=== PATIENT | male | born 1940 | race Caucasian/White ===

== ENCOUNTER 2020-01-03 08:24 | Inpatient (IN) ==
--- NOTE | 2019-12-31 09:11 | PAT Medication Instructions ---
Medication Instructions Date of Service December 31, 2019 Home Medications aspirin [Aspir-81] 81 mg PO QAM atorvastatin 40 mg PO QAM Take morning of surgery With a small sip of water, OTHERWISE NOTHING TO EAT OR DRINK AFTER MIDNIGHT: aspirin [Aspir-81] 81 mg PO QAM atorvastatin 40 mg PO QAM Other Notes If you have any questions please call us at [phone] or [phone] or [phone] or [phone]
--- NOTE | 2019-12-31 11:21 | Anesthesiology Consultation ---
Date of Service December 31, 2019 Assessment & Plan (1) Encounter for pre-operative examination: Chart Review Chart Review: Acceptable Risk for Surgery and Patient seen in Pre Admission Testing --Pre op EKG showing possible inferior infarct. When cardio compares to 2004 EKG- only notes that PVCs no longer present. By personal visual inspection, very minor changes noted. Discussed with Dr. Riggs, patient has excellent functional status with no limiting CP or SOB. Pt acceptable risk for surgery at this time but will leave to anesthesiologist discretion DOS. Per nursing assessment 12/28/19, patient resides in [facility]- only traveled to [facility] for medical appointments (wore mask). Pt denies any known contact with PUI/Covid positive patients. No current Covid related symptoms or history of Covid testing Teaching & Discussion Pre-Anesthesia Teaching/Discussion Notes: Instructed NPO after midnight before surgery,except medications with 15 cc of water. Medication instructions provided according to the PAT guidelines. History Surgery Operation Date: 01/03/20 13:40 Proposed Procedures p Left Reverse Total Shoulder Arthroplasty - Jose Guardado MD Height/Weight Height: 5 ft 7 in Weight: 89.8 kg Allergies Allergy/AdvReac Type Severity Reaction Status Date / Time No Known Allergies Allergy Unknown Unverified 12/28/19 15:31 Medications Home Medications Medication Instructions Recorded Confirmed Last Taken aspirin [Aspir-81] 81 mg PO QAM 12/28/19 12/28/19 Unknown atorvastatin 20 mg PO DAILY 12/31/19 12/31/19 Unknown Past Medical History Medical History Hyperlipidemia KAYLA (obstructive sleep apnea) Uses BiPAP occ Exercise / Class Metabolic Activity 1 > 8 Run/Swim/Ski/Tennis (runs 2-3 miles daily; one flight of stairs- no chest pain or SOB ) Past Surgical History Surgical History History of colonoscopy History of total hip arthroplasty LEFT Hx of shoulder surgery RIGHT Past Anesthesia History No Hx of Anesthesia Complications and No Family Hx of Anesthesia Complications History of PONV No Hx of PONV and No Hx of Motion Sickness Social History Smoking Status: Never smoker Do You Dip or Chew Tobacco: No Hx Alcohol Use: No Hx Substance Use: No substance use type: does not use Review of Systems Patient denies chest pain, shortness of breath, dyspnea on exertion, reflux, cough, wheezing, palpitations. No hx of seizures, stroke, NM. No hx of blood clots or blood transfusions Physical Exam Vital Signs VITALS BP 148/92 P 49 (HR usually slow for patient- runs 2-3 miles daily- denies syncope or dizziness) TEMP 98.3 SP02 96% RESP 16 Constitutional no acute distress ENMT Mouth: no TMJ clicking, no chipped teeth and no loose teeth Thyromental Distance: > or= 3.5 Finger Breadths (4.0) Mallampati Class: II Missing molars Neck + limited neck extension (mild) Respiratory normal respiratory effort; no respiratory distress Auscultation: lungs clear to auscultation bilaterally; no wheezes Cardiovascular Rate/Rhythm: regular rate and regular rhythm Heart Sounds: no murmur Vessels: no carotid bruit Musculoskeletal Spine: no pain with cervical ROM Neurologic moves all extremities Psychiatric Orientation: alert Testing Laboratory Results 12/31/19 11:39 12/31/19 11:39 PT 11.0 Seconds (9.0-12.0) 12/31/19 11:39 INR 1.0 (0.9-1.1) 12/31/19 11:39 APTT 28.1 Seconds (21.0-31.0) 12/31/19 11:39 Hemoglobin A1c 6.0 % (4.5-5.6) H 12/31/19 11:39 Urine Color Yellow 12/31/19 11:39 Urine Appearance Clear (Clear) 12/31/19 11:39 Urine pH 5.5 (4.5-7.5) 12/31/19 11:39 Ur Specific [place] 1.021 (1.000-1.030) 12/31/19 11:39 Urine Protein Negative (Negative) 12/31/19 11:39 Urine Glucose (UA) Negative (Negative) 12/31/19 11:39 Urine Ketones Negative (Negative) 12/31/19 11:39 Urine Nitrite Negative (Negative) 12/31/19 11:39 Ur Leukocyte Esterase Negative (Negative) 12/31/19 11:39 Blood Type A Positive 12/31/19 11:39 Antibody Screen NEGATIVE 12/31/19 11:39 Electrocardiogram Date: 12/31/19 Findings: + SB @ (46) Possible inferior infarct, age undetermined. Per cardio when compared to EKG from 11/17/2004, PVCs are no longer present. Chest X-Ray Date: 12/31/19 Findings: + NAD Platelike atelectasis left base.
[2019-12-31 12:29] LABS: Hematocrit (blood only) 47.1 % (42-52); Hemoglobin 15.6 g/dL (14.0-18.0); Mean Corpuscular Hemoglobin 31.6 pg (25-34); Mean Corpuscular Hgb Conc 33.1 g/dL (32-36); Mean Corpuscular Volume 95.5 fL (80-100); RDW Standard Deviation 48.6 fL (36.4-46.3); Red Blood Count 4.93 M/uL (4.7-6.1)
--- NOTE | 2019-12-31 12:34 | XRay Report ---
XR chest Pre-admission PA/Lat CLINICAL HISTORY: pat preoperative COMPARISON STUDY: No previous studies for comparison. FINDINGS: The bones soft tissues and hemidiaphragms are normal. The cardiomediastinal silhouette is n ormal. The lungs are clear. The pulmonary vasculature is normal. Platelike atelectasis left base IMPRESSION: No acute process. Platelike atelectasis left base. ACT 112: Negative or not required by law. The above report was generated using voice recognition software. It may contain grammatical, syntax or spelling errors. Electronically signed by: Camacho Novoa M.D. 12/31/2019 12:33 PM
[2019-12-31 12:35] LABS: Potassium 3.9 mmol/L (3.5-5.1)
[2019-12-31 12:36] LABS: Albumin Level 3.4 gm/dl (3.4-5.0); BUN Creatinine Ratio 13.6 (10-20); Calcium 8.9 mg/dl (8.5-10.1); Creatinine Clr Calc Pharmacy 37.5 ml/min; Est GFR (African American) 43.8; Est GFR (Non-African American) 37.8
[2019-12-31 12:40] LABS: Estimated Average Glucose 126 mg/dl
[2019-12-31 12:43] LABS: Partial Thromboplastin Time 28.1 Seconds (21.0-31.0)
[2019-12-31 12:46] LABS: Appearance Urine Clear (Clear); Bilirubin Urine Negative (Negative); Blood Urine Negative (Negative); Color Urine Yellow; Glucose Urine UA Negative (Negative); Ketones Urine Negative (Negative); Leukocyte Esterase Urine Negative (Negative); Nitrite Urine Negative (Negative); Protein Urine Negative (Negative); Specific Gravity Urine 1.021 (1.000-1.030); Urobilinogen Urine Negative (Negative); pH Urine 5.5 (4.5-7.5)
[2019-12-31 13:27] LABS: Mean Platelet Volume 12.2 fL (7.4-10.4); Platelet Count 129 K/uL (130-400)
[2019-12-31 13:28] LABS: Basophils # (auto) 0.05 K/uL (0-0.2); Basophils % (auto) 0.8 %; Eosinophils # (auto) 0.37 K/uL (0-0.5); Immature Granulocytes # (auto) 0.01 K/uL (0.00-0.02); Immature Granulocytes % (auto) 0.2 %; Lymphocytes # (auto) 1.61 K/uL (1.2-3.4); Lymphocytes % (auto) 26.1 %; Monocytes # (auto) 0.68 K/uL (0.11-0.59); Neutrophils # (auto) 3.45 K/uL (1.4-6.5); Neutrophils % (auto) 55.9 %; Platelet Estimate Decreased (Normal)
--- NOTE | 2019-12-31 16:20 | History & Physical Report ---
Date of Service December 31, 2019 Assessment & Plan (1) Rotator cuff arthropathy of left shoulder: Treatment options were discussed with than patient. He has failed conservative measures as above. MRI demonstrates a massive retracted rotator cuff tear. He would like to proceed with surgical intervention. Risks, benefits and alternatives to surgery including but not limited to infection, DVT, pain, stiffness, need for revision surgery, damage to blood vessels, damage to nerves, PE, , were discussed with the patient and they wish to proceed. Given the size of patients tear, and quality of tissue this is something that would not be amenable to repair. We will proceed with left reverse total shoulder arthroplasty. Will plan on OPPT post discharge. We will plan on him resuming his daily aspirin post operatively for DVT prophylaxis. All questions answered. He will follow up post operatively. Surgery scheduled for 01/03/20 at [facility]. COVID-19 status is unknown. History of Present Illness Chief Complaint: Left shoulder pain Primary Care Provider: Cait Mclain DO Patient is an 79 year old male with PMHx of high cholesterol, question of a possible TIA several years ago who presents with ongoing left shoulder pain and dysfunction. He suffered a fall while skiing and has had problems since. He has failed conservative therapy, including cortisone injection, anti-iflammatories, and physical therapy. He continues to have pain and weakness, and difficulty carrying out his daily activities. He would like to proceed with surgical intervention. Patient denies headaches, sweats, fevers, chills, double vision, blurred vision, cough, sore throat, dysphagia, chest pain, sob, wheezing, n/v/d/c, numbness, tingling, fatigue, urinary symptoms, mood disorders. ROS positive for left shoulder pain and stiffness. Allergies Allergy/AdvReac Type Severity Reaction Status Date / Time No Known Allergies Allergy Unknown Unverified 12/28/19 15:31 Home Medications Home Medications Medication Instructions Recorded Confirmed Type aspirin [Aspir-81] 81 mg PO QAM 12/28/19 12/28/19 History atorvastatin 20 mg PO DAILY 12/31/19 12/31/19 History Past Med/Surg History Medical History Hyperlipidemia KAYLA (obstructive sleep apnea) Uses BiPAP occ Surgical History History of colonoscopy History of total hip arthroplasty LEFT Hx of shoulder surgery RIGHT Social History Preferred Language: Indonesian Communication Ability: Effective 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 Beliefs That Will Affect Care: None Current Living Situation: Spouse Feels Safe at Home: Yes Smoking Status: Never smoker Second Hand Exposure: No ; Hx Alcohol Use: No Hx Substance Use: No Review of Systems All systems reviewed & are unremarkable except as noted in HPI & below Physical Exam Constitutional: well developed and well nourished; no acute distress Eyes: PERRL, conjunctivae normal, anicteric sclerae ENMT: external ear and nose normal, oropharynx normal Neck: trachea midline, no thyromegaly Respiratory: normal respiratory effort, lungs clear to auscultation Cardiovascular: RRR, no murmur, no edema Musculoskeletal: Left Shoulder: Normal left shoulder ROM, positive impingement signs. Supraspinatus 3/5, infraspinatus 3/5, subscapularis 5/5 Skin: no rashes, warm and dry Neurologic: patellar DTR's 2+ bilat, sensation intact Psychiatric: A+Ox3, euthymic affect Results & Data Laboratory Results Lab Results 12/31/19 12/31/19 12/31/19 Range/Units 11:39 11:39 11:39 WBC 6.20 (4.8-10.8) K/uL RBC 4.93 (4.7-6.1) M/uL Hgb 15.6 (14.0-18.0) g/dL Hct 47.1 (42-52) % MCV 95.5 (80-100) fL MCH 31.6 (25-34) pg MCHC 33.1 (32-36) g/dL RDW Std Deviation 48.6 H (36.4-46.3) fL RDW Coeff of Sheri 14.0 (11.5-14.5) % Plt Count 129 L (130-400) K/uL MPV 12.2 H (7.4-10.4) fL Immature Gran % (Auto) 0.2 % Neut % (Auto) 55.9 % Lymph % (Auto) 26.1 % [place] % (Auto) 11.0 % Eos % (Auto) 6.0 % Baso % (Auto) 0.8 % Immature Gran # (Auto) 0.01 (0.00-0.02) K/uL Neut # (Auto) 3.45 (1.4-6.5) K/uL Lymph # (Auto) 1.61 (1.2-3.4) K/uL [place] # (Auto) 0.68 H (0.11-0.59) K/uL Eos # (Auto) 0.37 (0-0.5) K/uL Baso # (Auto) 0.05 (0-0.2) K/uL Platelet Estimate Decreased L (Normal) PT 11.0 (9.0-12.0) Seconds INR 1.0 (0.9-1.1) APTT 28.1 (21.0-31.0) Seconds PTT Ratio 1.0 Sodium (136-145) mmol/L Potassium (3.5-5.1) mmol/L Chloride (98-107) mmol/L Carbon Dioxide (21-32) mmol/L Anion Gap (3-11) BUN (7-18) mg/dl Creatinine (0.6-1.4) mg/dl Est Cr Clr Drug Dosing ml/min Est GFR ( Amer) Est GFR (Non-Af Amer) BUN/Creatinine Ratio (10-20) Glucose (70-99) mg/dl Estimat Average Glucose mg/dl Hemoglobin A1c (4.5-5.6) % Calcium (8.5-10.1) mg/dl Albumin (3.4-5.0) gm/dl Urine Color Urine Appearance (Clear) Urine pH (4.5-7.5) Ur Specific [place] (1.000-1.030) Urine Protein (Negative) Urine Glucose (UA) (Negative) Urine Ketones (Negative) Urine Blood (Negative) Urine Nitrite (Negative) Urine Bilirubin (Negative) Urine Urobilinogen (Negative) Ur Leukocyte Esterase (Negative) Blood Type A Positive Antibody Screen NEGATIVE 12/31/19 12/31/19 12/31/19 Range/Units 11:39 11:39 11:39 WBC (4.8-10.8) K/uL RBC (4.7-6.1) M/uL Hgb (14.0-18.0) g/dL Hct (42-52) % MCV (80-100) fL MCH (25-34) pg MCHC (32-36) g/dL RDW Std Deviation (36.4-46.3) fL RDW Coeff of Sheri (11.5-14.5) % Plt Count (130-400) K/uL MPV (7.4-10.4) fL Immature Gran % (Auto) % Neut % (Auto) % Lymph % (Auto) % [place] % (Auto) % Eos % (Auto) % Baso % (Auto) % Immature Gran # (Auto) (0.00-0.02) K/uL Neut # (Auto) (1.4-6.5) K/uL Lymph # (Auto) (1.2-3.4) K/uL [place] # (Auto) (0.11-0.59) K/uL Eos # (Auto) (0-0.5) K/uL Baso # (Auto) (0-0.2) K/uL Platelet Estimate (Normal) PT (9.0-12.0) Seconds INR (0.9-1.1) APTT (21.0-31.0) Seconds PTT Ratio Sodium 143 (136-145) mmol/L Potassium 3.9 (3.5-5.1) mmol/L Chloride 112 H (98-107) mmol/L Carbon Dioxide 27 (21-32) mmol/L Anion Gap 4.0 (3-11) BUN 23 H (7-18) mg/dl Creatinine 1.68 H (0.6-1.4) mg/dl Est Cr Clr Drug Dosing 37.5 ml/min Est GFR ( Amer) 43.8 Est GFR (Non-Af Amer) 37.8 BUN/Creatinine Ratio 13.6 (10-20) Glucose 100 H (70-99) mg/dl Estimat Average Glucose 126 mg/dl Hemoglobin A1c 6.0 H (4.5-5.6) % Calcium 8.9 (8.5-10.1) mg/dl Albumin 3.4 (3.4-5.0) gm/dl Urine Color Yellow Urine Appearance Clear (Clear) Urine pH 5.5 (4.5-7.5) Ur Specific [place] 1.021 (1.000-1.030) Urine Protein Negative (Negative) Urine Glucose (UA) Negative (Negative) Urine Ketones Negative (Negative) Urine Blood Negative (Negative) Urine Nitrite Negative (Negative) Urine Bilirubin Negative (Negative) Urine Urobilinogen Negative (Negative) Ur Leukocyte Esterase Negative (Negative) Blood Type Antibody Screen Diagnostic Findings Left shoulder radiographs: Mild degenerative changes throughout shoulder Left shoulder MRI: Demonstrates massive retracted tear of his rotator cuff.
--- NOTE | 2020-01-01 11:33 | Electrocardiogram Report ---
Test Reason : Blood Pressure : / mmHG Vent. Rate : 046 BPM Atrial Rate : 046 BPM P-R Int : 190 ms QRS Dur : 100 ms QT Int : 484 ms P-R-T Axes : 046 036 012 degrees QTc Int : 423 ms Sinus bradycardia Possible Inferior infarct , age undetermined Abnormal ECG When compared with ECG of 17-NOV-2004 10:18, Premature ventricular complexes are no longer Present Confirmed by Link Carter ([id number]) on 01/01/2020 11:33:07 AM Referred By: Jose Guardado Confirmed By:Link Carter
--- NOTE | 2020-01-01 12:11 | Communication Note ---
Date of Service: January 01, 2020 COVID Assessment: Pt travel/history reviewed. Low risk at this time. Will reassess day of surgery.
[~2020-01-03 08:24] MED LIST: ACETAMINOPHEN 500 MG TAB PO SCH; CEFAZOLIN 2000MG 2,000 MG/15 ML SYR IV SCH; CeleBREX 200 MG CAP PO SCH; FAMOTIDINE 20 MG TAB PO SCH; GABAPENTIN 300 MG CAP PO SCH; LR 15ML/HR IV SCH; METOCLOPRAMIDE HCL 10 MG TABLET PO SCH; MISSING PHYSICIAN SIGNATURE ON ORDER SCH; OXYCODONE HCL 10 MG TABCR (OXYCONTIN) PO SCH; ROPIVACAINE 0.5% 5 MG/ML 30 ML VIAL ONE; TRANEXAMIC ACID 1,000 MG **IV Intra-op IV SCH; TRANEXAMIC ACID 1,000 MG **IV Pre-op IV SCH
[2020-01-03] MEDS ORDERED: fentaNYL citrate 100 MCG/2 ML VIAL ONE (08:59)
[2020-01-03] MEDS ORDERED: MIDAZOLAM HCL 1 MG/ML 2ML VIAL ONE (08:59)
--- NOTE | 2020-01-03 09:11 | History & Physical Bridge Note ---
Date of Service January 03, 2020 History & Physical Bridge Note I have examined the patient, reviewed the History & Physical and in the interval since the performance of the History & Physical I have noted the following changes of clinical significance: no changes noted
[2020-01-03] MEDS ORDERED: HYDROmorphone INJ 1 MG/ML SYRINGE IV PRN (09:51)
[2020-01-03] MEDS ORDERED: LABETALOL HCL IV 5 MG/ML 20ML IV PRN (09:51)
[2020-01-03] MEDS ORDERED: ONDANSETRON INJ 2 MG/ML 2 ML VIAL IV PRN ×2 (09:51→16:26)
[2020-01-03] MEDS ORDERED: ATROPINE SULFATE 0.1 MG/ML 10ML SYR IV PRN (09:51)
[2020-01-03] MEDS ORDERED: THROMBIN FOR SOLN 20000 UNIT KIT ONE (10:09)
[2020-01-03] MEDS ORDERED: BACITRACIN INJ 50,000 UNIT VIAL ONE (10:09)
[2020-01-03] MEDS ORDERED: VANCOMYCIN HCL 1000MG/20ML VIAL ONE (10:09)
[2020-01-03] MEDS ORDERED: ROPIVACAINE 0.5% HCL/PF 150 MG, BUPIVACAINE 0.5% MPF 30 ML, EPINEPHrine 30MG/30ML (OR U... INSTIL SCH (11:00)
[2020-01-03] MEDS ORDERED: ORTHO JOINT ANESTHETIC ONE (11:33)
[2020-01-03] MEDS ORDERED: LIDOCAINE HCL 2% 2 ML VIAL/AMP(20MG/ML) INFIL ONE (12:21)
[2020-01-03] MEDS ORDERED: GLYCOPYRROLATE 0.2 MG/ML VIAL ONE ×2 (12:21→12:22)
[2020-01-03] MEDS ORDERED: NEOSTIGMINE METHYLSULFATE 5 MG/5 ML SYR ONE (12:21)
[2020-01-03] MEDS ORDERED: ROCURONIUM BROMIDE 10 MG/ML 5 ML VIAL ONE (12:21)
[2020-01-03] MEDS ORDERED: PROPOFOL IV EMULSION 10 MG/ML 20 ML VIAL IV ONE (12:21)
--- NOTE | 2020-01-03 15:03 | XRay Report ---
XR shoulder LT min 2V routine CLINICAL HISTORY: Post shoulder surgery COMPARISON STUDY: None. FINDINGS: There is a reverse left total shoulder arthroplasty. The hardware appears intact. No fractu re or dislocation. Skin luis daniel and surgical drains are in place. IMPRESSION: Status post reverse left total shoulder arthroplasty. No evidence for hardware complicat ion. ACT 112: Negative or not required by law. Electronically signed by: Raudel Jimenes M.D. 01/03/2020 3:02 PM
--- NOTE | 2020-01-03 15:03 | Operative Report ---
Post Operative Report Pre & Post Diagnosis Operation Date: 01/03/20 10:20 Pre-Op Diagnosis: LEFT SHOULDER rotator cuff arthropathy Post-Op Diagnosis: LEFT SHOULDER rotator cuff arthropathy, tear long head biceps tendon I identified the patient and participated in the time-out.: Yes Procedure Operation Date: 01/03/20 10:20 Actual Procedures p Left Reverse Total Shoulder Arthroplasty(Left), biceps tenodesis- Jose Guardado MD Surgeon Jose Guardado MD Riveter Helper None Estimated Blood Loss 50 Findings Consistent with Post-Op Diagnosis Specimens None Drains 1 Hemovac Anesthesia Type General Regional Complications none Disposition Accompanied Patient To Recovery: No Disposition: Recovery Room Indications Patient is an 79-year-old male longstanding change of the left shoulder consistent with chronic massive retracted rotator cuff tear and rotator cuff arthropathy. He has failed conservative measures including injection, anti- inflammatories, physical therapy. He wishes to proceed with left reverse total shoulder arthroplasty Description of Procedure Risks, benefits and alternatives to surgery including, but not limited to, infection DVT, pain, stiffness, need for revision surgery, failure to relieve all symptoms, damage to blood vessels, damage to nerves, risk of anesthesia were discussed with the patient and they wished to proceed. The patient was identified. Laterality was confirmed and marked. The patient received a preoperative antibiotic as well as an interscalene block. They were transferred to the operating room and placed in the supine position and induced into general endotracheal anesthesia per the anesthesia staff. The patient was then safely transferred to a slight beachchair position. The patient was secured in the Tenet positioner. All pressure points were well padded. The shoulder was prepped and draped in the usual sterile manner with ChloraPrep. The arm was secured in the Spider robertson. I made a longitudinal incision just lateral to the coracoid, sharply incising through the skin and utilizing Bovie electrocautery to achieve hemostasis. I identified the cephalic vein and mobilized it laterally with the deltoid. I mobilize the pectoralis and mobilize this medially releasing a small portion of the upper border of the pec tendon to improve visualization. I then identified and mobilized the conjoined tendon. I identified the long head of the biceps tendon. The long head of the biceps tendon had significant tendinosis and tearing proximally. I performed an in situ biceps tenodesis with interrupted #2 FiberWire suture. I then released the subscapularis. I pinned into place my humeral head version cutting guide and made my humeral head resection. I then sequentially reamed and sequentially broached. I then placed the trial humeral stem into the shoulder. I placed retractors around the glenoid and then excised the residual biceps tendon stump and glenoid labrum. I elevated the soft tissues and the inferior aspect of the glenoid to improve exposure and released tissues circumferentially. I then positioned and drilled for the central post for the glenoid plate. The glenoid plate was bone grafted with bone taken from the humeral head. I impacted the definitive glenoid plate into position and then placed a total of 4 compression screws that were then locked into position with locking caps. I then placed the glenosphere onto the plate and secured it with a locking screw. I then removed the trial humeral stem and placed the definitive humeral stem. I trialed off of the definitive stem. The definitive components used were [employer] Equinox: Preserve short humeral press-fit stem: 8 Standard glenoid plate Glenosphere: 38 Humeral tray:+ 0 Humeral polyethylene liner: + 0 I thoroughly irrigated the wound. Deep tissues were anesthetized with an orthomix solution. I then locked my definitive humeral tray into position with a torque limiting screw. I then impacted the definitive humeral polyethylene liner into position. I then reduced the shoulder. There was good range of motion and good stability after the reduction. The wound was again thoroughly irrigated and a Betadine soak was performed. A deep drain was placed. The deltopectoral interval was closed with interrupted #1 Ethibond suture. The sub cutaneous tissue was closed with interrupted 2-0 Vicryl suture. The skin was closed with luis daniel. A sterile dressing was applied. A sling was placed. All needle and sponge counts were correct at the end of the procedure. The patient was transferred to the PACU in stable condition without apparent complication. The PA-C was necessary for assistance with procedure for assistance in positioni ng, prepping, draping, retraction and closure. I attest to the content of the Intraoperative Record and any orders documented therein. Any exceptions are noted below.
--- NOTE | 2020-01-03 15:20 | Cardiology Consultation ---
Date of Consultation January 03, 2020 Assessment & Plan (1) Sinus bradycardia: He has sinus bradycardia on monitoring here in the hospital and has a long history of it by his description. 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 He notes that his heart rate increases nicely when he is active and he is very active. He has never had symptoms of lightheadedness or dizziness and no presyncope or syncope. Although this may be a component of sick sinus syndrome it may well be just him being in good physical condition. Since it is asymptomatic I would not treat it specifically. (2) Ventricular bigeminy seen on cardiac cath lab manager: Ventricular bigeminy: He had periods of ventricular bigeminy postoperatively, he was awake and unaware of it. Although it did lower his effective heart rate into the 20s he is unlikely to have this when he is active and he has no hemodynamic symptoms. I think it would be prudent to watch him overnight on the monitor but I would not treat this specifically unless it becomes frequent or symptomatic. History of Present Illness Reason for Consultation: Bradycardia, bigeminy Attending Physician: Jose Guardado MD History of Present Illness This is an 79-year-old male with a history of hypercholesterolemia, possible TIA but no known cardiovascular disease otherwise. He presented for shoulder surgery, postoperatively he was noted to be bradycardic and had an episode of ventricular bigeminy with a very slow effective heart rate. He is awake and alert at the time of my evaluation. He reports having a slow heart rate most of his life and he is very athletic, he does triathlons and he is a very aware of his heart rate. He reports that his heart rate increases appropriately with activity. He has never had lightheadedness or dizziness, never had presyncope or syncope. He shoulder injury was due to a skiing accident not a syncopal event. He has had stress test in the past and he has had an echocardiogram before though he does not remember exactly when. This took place in [place]. Allergies Allergy/AdvReac Type Severity Reaction Status Date / Time No Known Allergies Allergy Unknown Verified 01/03/20 09:03 Home Medications Home Medications Medication Instructions Recorded Confirmed Type aspirin [Aspir-81] 81 mg PO QAM 12/28/19 01/03/20 History atorvastatin 20 mg PO DAILY 12/31/19 01/03/20 History cholecalciferol (vitamin D3) 50 mcg PO DAILY 01/03/20 01/03/20 History [Vitamin D3] lutein 6 mg PO DAILY 01/03/20 01/03/20 History omega 8-qwu-ysa-fish oil [Fish Oil] 1 cap PO DAILY 01/03/20 01/03/20 History Patient History Medical History Hyperlipidemia KAYLA (obstructive sleep apnea) Uses BiPAP occ Surgical History History of colonoscopy History of total hip arthroplasty LEFT Hx of shoulder surgery RIGHT Social History Preferred Language: Malaysian Communication Ability: Effective Beam Warper Required: No Beliefs That Will Affect Care: None Current Living Situation: Spouse Other Information That Helps Us Care for You: No Feels Safe at Home: Yes Safety Concerns: Feels Safe At This Time Smoking Status: Never smoker Do You Dip or Chew Tobacco: No ; Second Hand Exposure: No ; Tobacco Cessation Education Requested by Patient: No Hx Alcohol Use: No Hx Substance Use: No Review of Systems Review of Systems: All systems reviewed & are unremarkable except as noted in HPI & below Physical Exam Physical Exam: Constitutional: Alert, cooperative and in no distress. HEENT: Unremarkable Neck: No jugular venous distention, carotid pulses are normal and equal bilaterally without bruits. Pulmonary: Clear to auscultation bilaterally. Cardiac: Regular rhythm with no murmur, gallop or rub. Abdomen: Soft, nontender with normal bowel sounds. Extremities: No edema. Distal pulses intact. Neurologic: No focal findings. Gait is steady. Skin: No rash, ecchymoses or petechiae. Results & Data ([facility]) Vital Signs (Past 12 Hours) Vital Signs Temp Pulse Pulse Resp BP Pulse Ox 01/03/20 15:10 36.2 C L 41 L 13 150/89 H 96 01/03/20 15:00 36.2 C L 43 L 14 151/88 H 97 01/03/20 14:50 36.2 C L 43 L 14 146/82 H 98 01/03/20 14:40 43 L 10 L 156/85 H 98 01/03/20 14:30 46 L 16 146/79 H 96 01/03/20 14:20 39 L 12 189/91 H 97 01/03/20 14:09 36.0 C L 52 L 14 197/84 H 99 01/03/20 08:53 37.1 C 51 L 18 173/91 H 96 Laboratory Results Intake and Output 01/03/20 01/03/20 01/03/20 06:59 14:59 22:59 Intake Total 1300 / 1700 400 / 1700 Output Total 51 / 131 80 / 131 Balance 1249 / 1569 320 / 1569 Intake: IV 100 / 100 TRANEXAMIC ACID / 0.7% NACL 1, 100 / 100 000 mg In 100 ml @ 600 mls/hr IV TODAY@0600 [facility] Rx#:[id number] IV Perioperative 1200 / 1600 400 / 1600 Output: Estimated Blood Loss 50 / 50 Drain Output 80 / 81 Left Shoulder Hemovac #1 80 / 81 Other: Weight 88.7 kg Patient Weight 01/04/20 06:59 Weight 88.7 kg Diagnostic Findings A 12-lead electrocardiogram done December 31, 2019 preoperatively shows sinus bradycardia at 46 bpm, 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 Similar to prior tracings. Telemetry: Postoperatively his heart rate was typically in the low 40s, he had periods of ventricular bigeminy which were brief, resulting in a slow effective heart rate in the 20s. PG Care Time/CCT Total # of Minutes Spent Total Time Spent with Patient: Total time spent is greater than 50% in coordination of care (as documented) at patient's floor/unit and/or counseling patient: Coding Level of Care Code 90306 Initial Inpt Care Lvl 2 Diagnoses Sinus bradycardia R00.1 Ventricular bigeminy seen on cardiac cath lab manager R00.8
--- NOTE | 2020-01-03 15:31 | Anesthesiology Progress Note ---
Date of Service January 03, 2020 pt with brief episode of bigeminy with slow pulse but tolerated by him while supine. Had cardiology see him but by then was out of bigeminy - will put patient in monitored bed over night but seems to be just sinus penny now and is awake and feeling well. Anesthesia Post Procedure Vital Signs Vital Signs: Temp Pulse Pulse Resp BP Pulse Ox 01/03/20 15:20 36.2 C L 41 L 16 155/87 H 96 01/03/20 15:10 36.2 C L 41 L 13 150/89 H 96 01/03/20 15:00 36.2 C L 43 L 14 151/88 H 97 01/03/20 14:50 36.2 C L 43 L 14 146/82 H 98 01/03/20 14:40 43 L 10 L 156/85 H 98 01/03/20 14:30 46 L 16 146/79 H 96 01/03/20 14:20 39 L 12 189/91 H 97 01/03/20 14:09 36.0 C L 52 L 14 197/84 H 99 01/03/20 08:53 37.1 C 51 L 18 173/91 H 96 Pain Intensity Left Shoulder: Pain Intensity: 0 Transfer of Care Handoff Completed per policy Notes Mental Status: alert / awake / arousable Patient Amnestic to Procedure: Yes Nausea / Vomiting: adequately controlled Pain: adequately controlled Airway Patency, RR, SpO2: stable & adequate BP & HR: stable & adequate Hydration State: stable & adequate Anesthetic Complications: no major complications apparent
[2020-01-03] MEDS ORDERED: SODIUM CHLORIDE 0.9% 1000ML 1,000 ML IV SCH (16:26)
[2020-01-03] MEDS ORDERED: bisacodyL 10 MG SUPP PR PRN (16:26)
[2020-01-03] MEDS ORDERED: METOCLOPRAMIDE HCL INJ 5 MG/ML 2 ML VIAL IV PRN (16:26)
[2020-01-03] MEDS ORDERED: MAGNESIUM HYDROXIDE SUSP 30 ML UDC PO PRN (16:26)
[2020-01-03] MEDS ORDERED: HYDROmorphone INJ 0.5 MG/0.5 ML SYR IV PRN (16:26)
[2020-01-03] MEDS ORDERED: TAMSULOSIN HCL 0.4 MG CAP PO PRN (16:26)
[2020-01-03] MEDS ORDERED: NALOXONE HCL 0.4 MG/1 ML VIAL/CARP IV PRN (16:26)
[2020-01-03] MEDS ORDERED: OXYCODONE HCL IR 5 MG TAB (IMMEDIATE RELEASE) PO PRN (16:26)
--- NOTE | 2020-01-03 19:07 | XRay Report ---
LEFT SHOULDER 2 VIEWS CLINICAL HISTORY: Postoperative examination. FINDINGS: 2 portable views of the left shoulder are compared to study performed earlier the same day 01/03/2020. The skeletal structures are osteopenic. A left shoulder arthroplasty is in near-anatomic al ignment. No acute fracture is seen. Skin clips, a surgical drain, soft tissue swelling, and subcutane ous gas are expected postoperative findings. Atelectasis is noted at the left lung base. IMPRESSION: Expected postoperative findings status post left shoulder arthroplasty. No acute fracture is identified. Electronically signed by: Rosas Griffiths M.D. 01/03/2020 7:06 PM
[2020-01-03] MEDS: CEFAZOLIN 2000MG 2,000 MG/15 ML SYR IV SCH (19:54)
[2020-01-03] MEDS ORDERED: SENNA 8.6 MG TAB PO SCH (21:00)
[2020-01-03] MEDS: ACETAMINOPHEN 500 MG TAB PO SCH (21:35)
[2020-01-03] MEDS: DOCUSATE SODIUM 100 MG CAP PO SCH (21:35)
--- NOTE | 2020-01-03 23:29 | History & Physical Report ---
Date of Service January 03, 2020 Assessment & Plan (1) Sinus bradycardia: (2) Ventricular bigeminy seen on gambling monitor: 79-year-old male with history of hypertension, dyslipidemia, CKD stage III, TIA presented with bradycardia after left shoulder surgery. 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 We will follow the patient with you during their hospital stay. You can reach a member of the [facility] Hospitalist Team 21/02 via pager @ [phone]. Admission and Anticipated Discharge Date Admission Date: January 03, 2020 History of Present Illness 79-year-old male with history of hypertension, dyslipidemia, CKD stage III, TIA, presenting with bradycardia after his shoulder surgery. Consulting physician: Dr. Guardado Reason for consult: Postoperative medical management Patient is a very pleasant 79-year-old male who underwent left shoulder arthroplasty today. While at PACU, the patient was noted to have bradycardia in the 30s to 40s, and ventricular bigeminy. Patient was asymptomatic at that time and blood pressure was stable. Home Staging Specialist Dr. Carter was consulted. No further diagnostic or medication changes recommended at this time but does recommend at least monitoring overnight at telemetry unit. On exam, the patient is sitting up, having dinner, pleasant, comfortable. States he feels fine overall. Denies having any active chest pain, shortness of breath, palpitations, dizziness. Pain is well controlled. No other symptoms. Primary Care Provider: Cait Mclain DO Allergies Allergy/AdvReac Type Severity Reaction Status Date / Time No Known Allergies Allergy Unknown Verified 01/03/20 09:03 Home Medications Home Medications Medication Instructions Recorded Confirmed Type aspirin [Aspir-81] 81 mg PO QAM 12/28/19 01/03/20 History atorvastatin 20 mg PO DAILY 12/31/19 01/03/20 History cholecalciferol (vitamin D3) 50 mcg PO DAILY 01/03/20 01/03/20 History [Vitamin D3] lutein 6 mg PO DAILY 01/03/20 01/03/20 History omega 5-qlx-jws-fish oil [Fish Oil] 1 cap PO DAILY 01/03/20 01/03/20 History Past Med/Surg History Medical History Hyperlipidemia KAYLA (obstructive sleep apnea) Uses BiPAP occ Surgical History History of colonoscopy History of total hip arthroplasty LEFT Hx of shoulder surgery RIGHT Social History Preferred Language: Nigerien Communication Ability: Effective Baker Paint Required: No Beliefs That Will Affect Care: None Current Living Situation: Spouse Feels Safe at Home: Yes Smoking Status: Never smoker Second Hand Exposure: No ; Hx Alcohol Use: No Hx Substance Use: No Review of Systems Review of Systems: All systems reviewed & are unremarkable except as noted in HPI & below Physical Exam Physical Exam: General- oriented x 3, not in distress, speaks in sentences with no effort or accessory muscle use Head- atraumatic Eyes- PERRL, EOMI, anicteric ENT- oropharynx clear Neck- supple, no JVD, no adenopathy, no thyromegaly; carotids +2/2, no bruits appreciated Lungs- clear to auscultation bilaterally, no rales/wheezes Heart-heart rate 49, regular rhythm; no murmur, no gallop, no rub appreciated Abdomen- normal bowel sounds, nondistended, soft, nontender, no masses or hepatosplenomegaly Extremities- no pretibial edema, no calf tenderness; peripheral pulses intact Left shoulder, heavy dressing in place, drain in place with sanguinous output. Neuro- alert, oriented x 3; CN 2-12 grossly intact; motor 5/5 bilaterally;sensation 100% on all extremities; no other gross focal neurologic deficits Skin- warm & dry Results & Data Results & Data ([facility]) Vital Signs (Past 12 Hours) Vital Signs Temp Pulse Resp BP Pulse Ox 01/03/20 17:05 36.5 C 40 L 18 147/84 H 96 01/03/20 16:27 36.3 C L 43 L 16 150/84 H 92 01/03/20 16:10 40 L 14 144/86 H 94 01/03/20 16:00 41 L 12 148/80 H 95 01/03/20 15:50 36.3 C L 44 L 17 148/82 H 96 01/03/20 15:40 36.3 C L 41 L 13 140/79 96 01/03/20 15:30 36.2 C L 44 L 20 148/86 H 96 01/03/20 15:20 36.2 C L 41 L 16 155/87 H 96 01/03/20 15:10 36.2 C L 41 L 13 150/89 H 96 01/03/20 15:00 36.2 C L 43 L 14 151/88 H 97 01/03/20 14:50 36.2 C L 43 L 14 146/82 H 98 01/03/20 14:40 43 L 10 L 156/85 H 98 01/03/20 14:30 46 L 16 146/79 H 96 01/03/20 14:20 39 L 12 189/91 H 97 01/03/20 14:09 36.0 C L 52 L 14 197/84 H 99 Code Status & VTE Plan VTE Prophylaxis Plan VTE Prophylaxis will be ordered: Yes
[2020-01-04] MEDS: CEFAZOLIN 2000MG 2,000 MG/15 ML SYR IV SCH (02:25)
[2020-01-04] MEDS: ACETAMINOPHEN 500 MG TAB PO SCH ×3 (06:26→13:33)
--- NOTE | 2020-01-04 07:19 | Orthopedic Progress Note ---
Date of Service January 04, 2020 Assessment & Plan (1) Rotator cuff arthropathy of left shoulder: POD#1 Left Reverse TSA -Pain management -DVT prophylaxis-ASA 81mg daily, SCDs -PT/OT -AM labs are pending -D/C planning-home with plans on OPPT when stable. Will recheck later today for possible discharge if cleared by medicine as well as if begins to void. Admission and Anticipated Discharge Date Admission Date: January 03, 2020 Subjective Patient resting in bed comfortably, block still in effect so really not having any pain. Mild continued numbness into fingers but able to move them. He is having some urinary retention. Otherwise, no complaints. Denies chest pain, sob, light headedness. Was sent to Tele due to bradycardia and bigeminy. States resting pulse usually low 40s, which it has been. Review of Systems Review of Systems: All systems reviewed & are unremarkable except as noted in HPI & below Physical Exam Physical Exam: Left shoulder sling in place, dressing is c/d/i, hemovac in place. Fingers are mobile, good department editor strength. Distally n/v status and sensation intact. Constitutional: well developed and well nourished; no acute distress Results & Data ([facility]) Vital Signs (Past 12 Hours) Vital Signs Temp Pulse Pulse Resp BP Pulse Ox 01/04/20 04:00 36.5 C 42 L 18 123/76 94 01/04/20 01:29 47 L 01/03/20 23:00 36.7 C 45 L 20 126/75 92
[2020-01-04 07:25] LABS: Basophils # (auto) 0.02 K/uL (0-0.2); Basophils % (auto) 0.2 %; Eosinophils # (auto) 0.02 K/uL (0-0.5); Eosinophils % (auto) 0.2 %; Hematocrit (blood only) 42.7 % (42-52); Hemoglobin 14.1 g/dL (14.0-18.0); Immature Granulocytes # (auto) 0.02 K/uL (0.00-0.02); Immature Granulocytes % (auto) 0.2 %; Lymphocytes # (auto) 1.14 K/uL (1.2-3.4); Lymphocytes % (auto) 10.1 %; Mean Corpuscular Hemoglobin 31.7 pg (25-34); Mean Platelet Volume 11.6 fL (7.4-10.4); Monocytes # (auto) 1.05 K/uL (0.11-0.59); Monocytes % (auto) 9.3 %; Neutrophils # (auto) 9.03 K/uL (1.4-6.5); Platelet Count 113 K/uL (130-400); RDW Coefficient of Variation 13.8 % (11.5-14.5); RDW Standard Deviation 48.9 fL (36.4-46.3); Red Blood Count 4.45 M/uL (4.7-6.1); White Blood Count 11.28 K/uL (4.8-10.8)
[2020-01-04 08:02] LABS: BUN Creatinine Ratio 11.7 (10-20); Calcium 8.2 mg/dl (8.5-10.1); Creatinine Clr Calc Pharmacy 36.4 ml/min; Est GFR (African American) 42.6; Est GFR (Non-African American) 36.7; Potassium 4.3 mmol/L (3.5-5.1)
[2020-01-04] MEDS ORDERED: ASPIRIN 81 MG ECTAB PO SCH (09:00)
[2020-01-04] MEDS ORDERED: ATORVASTATIN 20 MG TAB PO SCH (09:00)
[2020-01-04] MEDS ORDERED: NON-FORMULARY MEDICATION (Lutein 6 MG) PO SCH (09:00)
[2020-01-04] MEDS ORDERED: MULTIVITAMIN TAB PO SCH (09:00)
[2020-01-04] MEDS ORDERED: OMEGA-3 (PURIFIED FISH OIL) 1 GM CAP PO SCH (09:00)
[2020-01-04] MEDS ORDERED: CHOLECALCIFEROL 1,000 UNITS 25 MCG TAB PO SCH (09:00)
[2020-01-04] MEDS: DOCUSATE SODIUM 100 MG CAP PO SCH (09:28)
--- NOTE | 2020-01-04 10:53 | Cardiology Progress Note ---
Date of Service January 04, 2020 Assessment & Plan (1) Sinus bradycardia: He has sinus bradycardia on monitoring here in the hospital and has a long history of it by his description. 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 He notes that his heart rate increases nicely when he is active and he is very active. He has never had symptoms of lightheadedness or dizziness and no presyncope or syncope. Although this may be a component of sick sinus syndrome it may well be just him being in good physical condition. Since it is asymptomatic I would not treat it specifically. (2) Ventricular bigeminy seen on video intern: He had periods of ventricular bigeminy postoperatively, and that has continued and was present this morning on the monitor. He was awake and unaware of it. Although it did lower his effective heart rate he is unlikely to have this when he is active and he has no hemodynamic symptoms. I would not treat this specifically unless it becomes frequent or symptomatic. He does follow-up with physicians in the [place] area and I recommended he see them. I would not perform any further cardiac testing now. Admission and Anticipated Discharge Date Admission Date: January 03, 2020 Subjective He is feeling well today, he notes that his heart rate is slow, but no slower than at other times and he does not have lightheadedness or dizziness. He did have ventricular bigeminy on the monitor this morning but does not have symptoms related to it. Physical Exam Physical Exam: Constitutional: Alert, cooperative and in no distress. HEENT: Unremarkable Neck: No jugular venous distention, carotid pulses are normal and equal bilaterally without bruits. Pulmonary: Clear to auscultation bilaterally. Cardiac: Regular rhythm with no murmur, gallop or rub. Abdomen: Soft, nontender with normal bowel sounds. Extremities: No edema. Distal pulses intact. Neurologic: No focal findings. Gait is steady. Skin: No rash, ecchymoses or petechiae. Results & Data ([facility]) Vital Signs (Past 12 Hours) Vital Signs Temp Pulse Pulse Pulse Resp BP Pulse Ox 01/04/20 07:50 43 L 01/04/20 07:20 36.5 C 45 L 18 120/72 93 01/04/20 04:00 36.5 C 42 L 18 123/76 94 01/04/20 01:29 47 L 01/03/20 23:00 36.7 C 45 L 20 126/75 92 Laboratory Results CBC 01/04/20 Range/Units 06:54 WBC 11.28 H (4.8-10.8) K/uL RBC 4.45 L (4.7-6.1) M/uL Hgb 14.1 (14.0-18.0) g/dL Hct 42.7 (42-52) % Plt Count 113 L (130-400) K/uL Neut # (Auto) 9.03 H (1.4-6.5) K/uL Lymph # (Auto) 1.14 L (1.2-3.4) K/uL [place] # (Auto) 1.05 H (0.11-0.59) K/uL Eos # (Auto) 0.02 (0-0.5) K/uL Baso # (Auto) 0.02 (0-0.2) K/uL Comprehensive Metabolic Panel 01/04/20 Range/Units 06:54 Sodium 140 (136-145) mmol/L Potassium 4.3 (3.5-5.1) mmol/L Chloride 108 H (98-107) mmol/L Carbon Dioxide 28 (21-32) mmol/L BUN 20 H (7-18) mg/dl Creatinine 1.72 H (0.6-1.4) mg/dl Glucose 120 H (70-99) mg/dl Calcium 8.2 L (8.5-10.1) mg/dl Intake and Output 01/03/20 01/04/20 01/04/20 22:59 06:59 14:59 Intake Total 725.5 / 2883.833 858.333 / 2883.833 Output Total 205 / 256 Balance 520.5 / 2627.833 858.333 / 2627.833 Intake: IV 125.5 / 933.833 708.333 / 933.833 Lr 1,000 ml @ 15 mls/hr IV . 125.5 / 125.5 Q24H [facility] Rx#:[id number] Nss 1000ML 1,000 ml @ 100 mls/ 708.333 / 708.333 hr IV .Q10H [facility] Rx#:[id number] IV Perioperative 400 / 1600 Oral 200 / 350 150 / 350 Output: Drain Output 205 / 206 Left Shoulder Hemovac #1 205 / 206 Other: # Unmeasured Voids 1 Weight 88.7 kg Diagnostic Findings Telemetry: Sinus bradycardia in the low 40s with frequent premature ventricular beats and periods of ventricular bigeminy. PG Care Time/CCT Total # of Minutes Spent Total Time Spent with Patient: Total time spent is greater than 50% in coordination of care (as documented) at patient's floor/unit and/or counseling patient: Coding Level of Care Code 20804 Subseq Hosp Care Lvl 2 Diagnoses Sinus bradycardia R00.1 Ventricular bigeminy seen on video intern R00.8
--- NOTE | 2020-01-04 15:44 | Hospitalist Progress Note ---
Date of Service January 04, 2020 Assessment & Plan (1) Rotator cuff arthropathy of left shoulder: POD#1 Left Reverse TSA performed by Dr. Guardado No post op complication Pain management as per ortho PT/OT as per ortho Hgb stable (2) Sinus bradycardia: (3) Ventricular bigeminy seen on boat outfitting supervisor: 79-year-old male with history of hypertension, dyslipidemia, CKD stage III, TIA presented with bradycardia after left shoulder surgery. 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 We will follow the patient with you during their hospital stay. You [facility] via pager @ [phone]. Admission and Anticipated Discharge Date Admission Date: January 03, 2020 Subjective Pt was seen and examined Lying in bed with no distress Pt said that he feels fine He already got dressed to go home Denies any chest pain, palpitation, dizziness and SOB Physical Exam Physical Exam: General- No acute distress Head- atraumatic Eyes- PERRL, EOMI, ENT- oropharynx clear Neck- supple, no JVD Lungs- clear to auscultation Heart- +bradycardia, no murmur Abdomen- normal bowel sounds, soft, nontender Extremities- no calf tenderness, L shoulder with drain in place with sanguinous output. Neuro- alert, oriented x 3; PERRL, EOMI; no facial palsy; no dysarthria Skin- warm & dry Results & Data Results & Data ([facility]) Vital Signs (Past 12 Hours) Vital Signs Temp Pulse Pulse Pulse Resp BP Pulse Ox 01/04/20 13:17 37.0 C 54 L 42 L 18 165/72 H 95 01/04/20 11:32 37.0 C 54 L 18 165/72 H 95 01/04/20 07:50 43 L 01/04/20 07:20 36.5 C 45 L 18 120/72 93 01/04/20 04:00 36.5 C 42 L 18 123/76 94
--- NOTE | 2020-01-05 19:27 | Discharge Summary ---
Date of Service January 05, 2020 Admission HPI Per Admitting Provider Patient is an 79 year old male with PMHx of high cholesterol, question of a possible TIA several years ago who presents with ongoing left shoulder pain and dysfunction. He suffered a fall while skiing and has had problems since. He has failed conservative therapy, including cortisone injection, anti-iflammatories, and physical therapy. He continues to have pain and weakness, and difficulty carrying out his daily activities. He would like to proceed with surgical intervention. Patient denies headaches, sweats, fevers, chills, double vision, blurred vision, cough, sore throat, dysphagia, chest pain, sob, wheezing, n /v/d/c, numbness, tingling, fatigue, urinary symptoms, mood disorders. ROS positive for left shoulder pain and stiffness. Admission Exam Per Admitting Provider Constitutional: well developed and well nourished; no acute distress Eyes: PERRL, conjunctivae normal, anicteric sclerae ENMT: external ear and nose normal, oropharynx normal Neck: trachea midline, no thyromegaly Respiratory: normal respiratory effort, lungs clear to auscultation Cardiovascular: RRR, no murmur, no edema Musculoskeletal: Left Shoulder: Normal left shoulder ROM, positive impingement signs. Supraspinatus 3/5, infraspinatus 3/5, subscapularis 5/5 Skin: no rashes, warm and dry Neurologic: patellar DTR's 2+ bilat, sensation intact Psychiatric: A+Ox3, euthymic affect Principal Diagnosis Left shoulder rotator cuff arthropathy, bradycardia Discharge Exam Constitutional well developed and well nourished; no acute distress Eyes PERRL, conjunctivae normal, anicteric sclerae ENMT external ear and nose normal, oropharynx normal Neck trachea midline, no thyromegaly Respiratory normal respiratory effort, lungs clear to auscultation Cardiovascular RRR, no murmur, no edema Skin no rashes, warm and dry Neurologic patellar DTR's 2+ bilat, sensation intact Psychiatric A+Ox3, euthymic affect Discharge Data Allergies Allergy/AdvReac Type Severity Reaction Status Date / Time No Known Allergies Allergy Unknown Verified 01/03/20 09:03 Consultations 01/03/20 16:26 Consult Case Management - Discharge Planning Routine 01/03/20 17:12 Consult Hospitalist Stat 01/04/20 12:06 Consult Cardiology Routine Procedures Performed Operation Date: 01/03/20 10:20 Actual Procedures p Left Reverse Total Shoulder Arthroplasty(Left) - Jose Guardado MD Ordered Studies 01/03/20 05:00 US - OR guided needle placemen Routine Hospital Course (1) Rotator cuff arthropathy of left shoulder: Patient presented for same day admission following left reverse total shoulder arthroplasty on 01/03/20. He tolerated procedure well. Post operatively patient was noted to be in bigeminy with bradycardia. Heart rate was consistently in the low 40s, patient did report that his normal resting heart rate is in the 40s. He is very athletic. Dr. Ponce of medical service and Dr. Mcneill of cardiology was consulted for medical management during admission. He also was experiencing some urinary retention on POD#1, with a post void residual of 500ml. This had resolved by time of discharge. Post-operatively, his activity was progressed and well tolerated. Labs remained stable- lowest hemoglobin recorded: 14.1. Pain controlled on oral medications. Please refer to daily progress notes and PT notes for complete details. After exam on 01/04/20, patient was felt to be stable for discharge home with plans on attending outpatient PT. Patient will f/u in the office in about 2 weeks for further evaluation including x-rays and incision check, sooner if having any issues or concerns. Lab Results 12/31/19 12/31/19 12/31/19 Range/Units 11:39 11:39 11:39 WBC 6.20 (4.8-10.8) K/uL RBC 4.93 (4.7-6.1) M/uL Hgb 15.6 (14.0-18.0) g/dL Hct 47.1 (42-52) % MCV 95.5 (80-100) fL MCH 31.6 (25-34) pg MCHC 33.1 (32-36) g/dL RDW Std Deviation 48.6 H (36.4-46.3) fL RDW Coeff of Sheri 14.0 (11.5-14.5) % Plt Count 129 L (130-400) K/uL MPV 12.2 H (7.4-10.4) fL Immature Gran % (Auto) 0.2 % Neut % (Auto) 55.9 % Lymph % (Auto) 26.1 % [place] % (Auto) 11.0 % Eos % (Auto) 6.0 % Baso % (Auto) 0.8 % Immature Gran # (Auto) 0.01 (0.00-0.02) K/uL Neut # (Auto) 3.45 (1.4-6.5) K/uL Lymph # (Auto) 1.61 (1.2-3.4) K/uL [place] # (Auto) 0.68 H (0.11-0.59) K/uL Eos # (Auto) 0.37 (0-0.5) K/uL Baso # (Auto) 0.05 (0-0.2) K/uL Platelet Estimate Decreased L (Normal) PT 11.0 (9.0-12.0) Seconds INR 1.0 (0.9-1.1) APTT 28.1 (21.0-31.0) Seconds PTT Ratio 1.0 Sodium (136-145) mmol/L Potassium (3.5-5.1) mmol/L Chloride (98-107) mmol/L Carbon Dioxide (21-32) mmol/L Anion Gap (3-11) BUN (7-18) mg/dl Creatinine (0.6-1.4) mg/dl Est Cr Clr Drug Dosing ml/min Est GFR ( Amer) Est GFR (Non-Af Amer) BUN/Creatinine Ratio (10-20) Glucose (70-99) mg/dl Estimat Average Glucose mg/dl Hemoglobin A1c (4.5-5.6) % Calcium (8.5-10.1) mg/dl Albumin (3.4-5.0) gm/dl Urine Color Urine Appearance (Clear) Urine pH (4.5-7.5) Ur Specific [place] (1.000-1.030) Urine Protein (Negative) Urine Glucose (UA) (Negative) Urine Ketones (Negative) Urine Blood (Negative) Urine Nitrite (Negative) Urine Bilirubin (Negative) Urine Urobilinogen (Negative) Ur Leukocyte Esterase (Negative) Blood Type A Positive Antibody Screen NEGATIVE 12/31/19 12/31/19 12/31/19 Range/Units 11:39 11:39 11:39 WBC (4.8-10.8) K/uL RBC (4.7-6.1) M/uL Hgb (14.0-18.0) g/dL Hct (42-52) % MCV (80-100) fL MCH (25-34) pg MCHC (32-36) g/dL RDW Std Deviation (36.4-46.3) fL RDW Coeff of Sheri (11.5-14.5) % Plt Count (130-400) K/uL MPV (7.4-10.4) fL Immature Gran % (Auto) % Neut % (Auto) % Lymph % (Auto) % [place] % (Auto) % Eos % (Auto) % Baso % (Auto) % Immature Gran # (Auto) (0.00-0.02) K/uL Neut # (Auto) (1.4-6.5) K/uL Lymph # (Auto) (1.2-3.4) K/uL [place] # (Auto) (0.11-0.59) K/uL Eos # (Auto) (0-0.5) K/uL Baso # (Auto) (0-0.2) K/uL Platelet Estimate (Normal) PT (9.0-12.0) Seconds INR (0.9-1.1) APTT (21.0-31.0) Seconds PTT Ratio Sodium 143 (136-145) mmol/L Potassium 3.9 (3.5-5.1) mmol/L Chloride 112 H (98-107) mmol/L Carbon Dioxide 27 (21-32) mmol/L Anion Gap 4.0 (3-11) BUN 23 H (7-18) mg/dl Creatinine 1.68 H (0.6-1.4) mg/dl Est Cr Clr Drug Dosing 37.5 ml/min Est GFR ( Amer) 43.8 Est GFR (Non-Af Amer) 37.8 BUN/Creatinine Ratio 13.6 (10-20) Glucose 100 H (70-99) mg/dl Estimat Average Glucose 126 mg/dl Hemoglobin A1c 6.0 H (4.5-5.6) % Calcium 8.9 (8.5-10.1) mg/dl Albumin 3.4 (3.4-5.0) gm/dl Urine Color Yellow Urine Appearance Clear (Clear) Urine pH 5.5 (4.5-7.5) Ur Specific [place] 1.021 (1.000-1.030) Urine Protein Negative (Negative) Urine Glucose (UA) Negative (Negative) Urine Ketones Negative (Negative) Urine Blood Negative (Negative) Urine Nitrite Negative (Negative) Urine Bilirubin Negative (Negative) Urine Urobilinogen Negative (Negative) Ur Leukocyte Esterase Negative (Negative) Blood Type Antibody Screen 01/04/20 01/04/20 Range/Units 06:54 06:54 WBC 11.28 H (4.8-10.8) K/uL RBC 4.45 L (4.7-6.1) M/uL Hgb 14.1 (14.0-18.0) g/dL Hct 42.7 (42-52) % MCV 96.0 (80-100) fL MCH 31.7 (25-34) pg MCHC 33.0 (32-36) g/dL RDW Std Deviation 48.9 H (36.4-46.3) fL RDW Coeff of Sheri 13.8 (11.5-14.5) % Plt Count 113 L (130-400) K/uL MPV 11.6 H (7.4-10.4) fL Immature Gran % (Auto) 0.2 % Neut % (Auto) 80.0 % Lymph % (Auto) 10.1 % [place] % (Auto) 9.3 % Eos % (Auto) 0.2 % Baso % (Auto) 0.2 % Immature Gran # (Auto) 0.02 (0.00-0.02) K/uL Neut # (Auto) 9.03 H (1.4-6.5) K/uL Lymph # (Auto) 1.14 L (1.2-3.4) K/uL [place] # (Auto) 1.05 H (0.11-0.59) K/uL Eos # (Auto) 0.02 (0-0.5) K/uL Baso # (Auto) 0.02 (0-0.2) K/uL Platelet Estimate (Normal) PT (9.0-12.0) Seconds INR (0.9-1.1) APTT (21.0-31.0) Seconds PTT Ratio Sodium 140 (136-145) mmol/L Potassium 4.3 (3.5-5.1) mmol/L Chloride 108 H (98-107) mmol/L Carbon Dioxide 28 (21-32) mmol/L Anion Gap 4.0 (3-11) BUN 20 H (7-18) mg/dl Creatinine 1.72 H (0.6-1.4) mg/dl Est Cr Clr Drug Dosing 36.4 ml/min Est GFR ( Amer) 42.6 Est GFR (Non-Af Amer) 36.7 BUN/Creatinine Ratio 11.7 (10-20) Glucose 120 H (70-99) mg/dl Estimat Average Glucose mg/dl Hemoglobin A1c (4.5-5.6) % Calcium 8.2 L (8.5-10.1) mg/dl Albumin (3.4-5.0) gm/dl Urine Color Urine Appearance (Clear) Urine pH (4.5-7.5) Ur Specific [place] (1.000-1.030) Urine Protein (Negative) Urine Glucose (UA) (Negative) Urine Ketones (Negative) Urine Blood (Negative) Urine Nitrite (Negative) Urine Bilirubin (Negative) Urine Urobilinogen (Negative) Ur Leukocyte Esterase (Negative) Blood Type Antibody Screen Total Time Total Time Spent Total Time Spent (In Minutes): 20 Discharge Plan Discharge Items Patient Disposition: Home - Self-Care Reason For Visit: LEFT SHOULDER OSTEOARTHRITIS Discharge Diagnosis: Left shoulder rotator cuff arthropathy Activity: Per Instructions section Non-emergency contact: Surgeon Call non-emergency contact if: you have any medication questions, your pain is not controlled, your pain is worsening, your pain is unusual for you, your pain is concerning for you, you have a fever, your temperature is above 101, your wound has increased redness, your wound has increased drainage and your wound pain has increased Follow-up/Referrals: Cait Mclain DO [Primary Care Provider] - Diet: Regular Addtl Attending Provider Instructions: ACTIVITY RECOMMENDATIONS: SELF CARE INSTRUCTIONS AFTER REVERSE TOTAL SHOULDER ARTHROPLASTY A. You may do daily exercises as taught in physical therapy while in hospital. No lifting with the operative arm. Please schedule your outpatient physical therapy appointment to begin within 2-3 days after leaving the hospital. Specific restrictions will be written on your physical therapy prescription that is provided to you. B. You are to wear your sling/immobilizer at all times EXCEPT when performing your daily exercises, participating in physical therapy and for hygiene purposes. C. You may perform dry, daily dressing changes. Please keep your incision covered. You may shower 48 hours after surgery. Do not apply soap or any ointment/lotions directly over incision. Do not soak incision in bath tub/swimming pool. D. You may use ice as needed to operative shoulder. SPECIAL CARE INSTRUCTIONS: . VERY IMPORTANT TO READ AND REVIEW A. There are a few signs you need to watch for after you are home. Call [facility] at [phone] if you experience any of the followin. Increased severe shoulder pain. Some pain is expected especially when you exercise. 2. Increased swelling in you shoulder or arm; pain or swelling in either upper extremity. 3. Any fluid drainage from the incision. 4. Shortness of breath or chest pain. B. Please call [facility] at [phone] if you have any questions or concerns about your operation or recovery. C. Call your physician if: 1. Temperature is greater than 101 degrees (F). 2. Pain is not relieved by prescribed pain medications. 3. Increase drainage or redness from incision. 4. Unanswered questions or concerns. FOLLOW UP VISIT: Please call [facility] at [phone] to schedule a follow up appointment with Dr. Guardado or his PA in 12-14 days from your surgery date. Stand-Alone Forms: [facility], Smoking Cessation Medications and DC Order Prescriptions: New acetaminophen 500 mg Tablet 1,000 mg PO Q8 Qty: 60 RF: 0 oxycodone 5 mg Tablet 5 - 10 mg PO .Q4H-6H MDD 6 PRN (Reason: pain) Qty: 30 RF: 0 Continued aspirin [Aspir-81] 81 mg Tablet,Delayed Release (Dr/Ec) 81 mg PO QAM RF: 0 atorvastatin 20 mg Tablet 20 mg PO DAILY RF: 0 lutein 6 mg Capsule 6 mg PO DAILY RF: 0 cholecalciferol (vitamin D3) [Vitamin D3] 50 mcg (2,000 unit) Capsule 50 mcg PO DAILY RF: 0 omega [id number] oil [Fish Oil] 1,000 mg (120 mg-180 mg) Capsule 1 cap PO DAILY RF: 0 Discharge Orders: Discharge Order (Routine); Ordered 01/04/20 Ordered By: Eulalio Mcdonald Admission Data Admit Date/Time: 01/03/20 14:19 Attending Provider: Jose Guardado Admit Provider: Jose Guardado Primary Care Provider: Cait Mclain Other Providers: Valentin Ponce ; David Longoria ; Link Carter Other Interventions: Discharge Summary Assessment (RN) Last Done: 01/04/20 13:17 DC Date/Time DO NOT enter until pt leaves facility: 01/04/20 14:33
== END 2020-01-04 14:33 | disposition home or self-care (01) | DRG 483 ==
LOC: ASU 08:24 → 2W 14:19